=== PATIENT | male | born 1965 | race Caucasian/White ===

== ENCOUNTER 2018-08-10 10:18 | Inpatient (IN) ==
[2018-08-10] MEDS ORDERED: Acetaminophen 325 MG TABLET PO PRN (10:33)
[2018-08-10] MEDS ORDERED: Ipratropium/Albuterol Neb 3 ML IH PRN (10:33)
[2018-08-10] MEDS ORDERED: Ondansetron 4 MG/2 ML VIAL IVP PRN (10:33)
[2018-08-10] MEDS ORDERED: Menthol 9.1 MG LOZENGE PO PRN (10:39)
[2018-08-10] MEDS ORDERED: *HR* FentaNYL PATCH 50 MCG PATCH TD SCH (10:45)
[2018-08-10] MEDS: OXYCODONE Oral CONC 10 MG/0.5 ML ORAL.SYG SL PRN ×2 (13:08→17:13)
--- NOTE | 2018-08-10 16:06 | Event Note ---
Date of Encounter: 08/10/18 Time of Encounter: 16:00 Patient having new complaint of insomnia. Add Remeron.
[2018-08-10] MEDS: ALPRAZolam 0.5 MG TABLET PO PRN (20:51)
[2018-08-10] MEDS: Gabapentin 300 MG CAPSULE PO SCH (20:51)
[2018-08-10] MEDS ORDERED: Mirtazapine 15 MG TABLET PO SCH (21:00)
[2018-08-11] MEDS: OXYCODONE Oral CONC 10 MG/0.5 ML ORAL.SYG SL PRN ×3 (08:34→17:42)
--- NOTE | 2018-08-11 15:12 | Pallative History & Physical ---
Date of Encounter: 08/11/18 Time of Encounter: 12:00 Assessment and Plan (1) UTI (urinary tract infection) Current visit: No Status: Acute course of antibiotics completed Qualifiers: Urinary tract infection type: acute cystitis Hematuria presence: without hematuria Qualified Code(s): N30.00 - Acute cystitis without hematuria (2) Intractable pain Current visit: No Status: Acute today pt comfortable, received a dose of oxycodone 15 minutes ago. Fentanyl patch was placed yesterday and pt feels that his need for breakthrough medication have decreased. he received 4 doses in 24hrs (3) Anxiety Current visit: No Status: Acute Patient restarted on his Xanax dose of 0.5 mg TID, it will likely help wit sleep as well. will discontinue Remeron to avoid multi-pharmacy. (4) Pancreatic cancer Current visit: No Status: Chronic comfort measures only Qualifiers: Pancreatic malignancy location: unspecified Qualified Code(s): C25.9 - Malignant neoplasm of pancreas, unspecified (5) Goals of care, counseling/discussion Current visit: No Status: Acute pt still needs [facility] for pain management and medication adjustment. If he remains stable, plan is to return home tomorrow with [place] hospice. Discussed with pt, Family aware and agreeable. GEREMIAS Robles to work on logistics. Internal Medicine - H&P: HPI Admitted From: Intrahospital Transfer Plans for Post Hospital Care: Hospice - Home History of present illness: Mr. Romero is a 53 year old male who presents to the ER last night with complaints of intractable pain from his pancreatic cancer. Pt was diagnosed with pancreatic ca in January 2018, s/p chemotherapy and intervention, including biliary stent. Unfortunately, his pain had become unbearable and he has had very little relief over the last few weeks. As per admitting physician's note, pt came to the ER requesting pain control and Hospice care. Workup in ER revealed patient to have leukocytosis and findings consistent with UTI. He was given IV antibiotics and IV fluids. Palliative care met with pt and family and decision was made for comfort measures only and discharge to home with hospice. However, pt needed a closer follow up for pain management and was admitted to [facility]. Today pt is sleepy, but easily arousable. He was feeling cold, but otherwise comfortable. states the Fentanyl patch is working well. He used 4 PRN doses of oxycodone in 24hrs. Past Med Surg Social Fam HX - Past Medical History Medical history: cancer, hypertension Additional medical history: pancreatic Psychiatric history: anxiety, depression - Past Surgical History Surgical History: cholecystectomy, herniorrhaphy - Social History Smoking Status: Current every day smoker Smokeless Tobacco Status: No Alcohol use: none Drug use: prescription drug abuse - Family History Mother Adopted: No Family Member Ethnicity: Non- Living Status: Still Living Hx Family Cardiac Disorders: Yes Hx Family Respiratory Disorders: No Hx Family Cancer: No Hx Family GI Disorders: No Hx Family Endocrine Disorder: Yes Internal Medicine - H&P: Meds Albuterol Sulfate [Ventolin Hfa] 2 puff IH Q4H PRN 01/21/18 [History] Lidocaine/Prilocaine [Emla] 1 appl TP DAILY #30 gm 03/05/18 [Rx] Gabapentin [Neurontin] 600 mg PO BID #60 tablet 04/28/18 [Rx] Venlafaxine XR (24 HR) [Effexor Xr] 150 mg PO DAILY #30 cap.er.24h 06/02/18 [Rx] ALPRAZolam [Xanax 0.5 MG Tablet] 0.5 mg PO BID PRN 30 Days #60 tablet 06/07/18 [Rx] Oxycodone HCl 15 mg PO Q4H PRN 14 Days #84 tablet 07/28/18 [Rx] Pantoprazole Sodium [Protonix] 40 mg PO BID 08/09/18 [History] Allergy/AdvReac Type Severity Reaction Status Date / Time cephalexin [From Keflex] Allergy Rash Verified 08/09/18 17:51 Iodinated Contrast- Oral and Allergy Rash Verified 08/09/18 17:51 IV Dye lorazepam [From Ativan] Allergy Swelling Verified 08/09/18 17:51 of Lip/Tongue/Throat morphine Allergy Rash Verified 08/09/18 17:51 - Constitutional Constitutional ROS PAL: decreased appetite, fatigue - EENT Eyes: no change in vision Ears, nose, mouth, throat: no neck mass - Cardiovascular Cardiovascular ROS: no chest pain, no chest pain at rest - Respiratory Respiratory: no cough, no dyspnea - Gastrointestinal Gastrointestinal: abdominal pain, bloating, constipation, no coffee ground emesis - Genitourinary Genitourinary ROS male: no dysuria - Musculoskeletal Musculoskeletal ROS IM: muscle weakness, no arthralgias - Integumentary ROS Integumentary: dry skin, no bleeding lesions - Neurological Neurological ROS: no dizziness, no focal weakness - Psychiatric Psychiatric general PM: anxiety, depression Palliative Care-Exam - Constitutional Vitals: Temp Pulse Resp BP Pulse Ox 97.9 F 87 20 81/51 99 08/11/18 07:54 08/11/18 07:54 08/11/18 07:54 08/11/18 07:54 08/11/18 07:54 General appearance: Present: average body habitus, cooperative, no acute distress - Head Head Exam: Present: atraumatic - Eye Eye exam: Present: PERRL, scleral icterus - ENT ENT exam: Present: mucous membranes dry - Neck Neck exam: Present: full ROM - Respiratory Respiratory exam: Present: CTAB. Absent: accessory muscle use - Cardiovascular Cardiovascular exam: Present: RRR, +S1, +S2, systolic murmur - GI/Abdominal Exam GI/Abdominal exam: Present: mass, normal bowel sounds, soft, tenderness. Absent: rebound - Extremities Exam Extremities exam: Present: full ROM, normal inspection - Neurological Exam Neurological exam: Present: alert, oriented X3, no focal deficits - Skin Skin exam: Present: dry, intact, warm Palliative Quality Palliative Quality: Screen for Code Status: Yes, Screen for Goals of Care: Yes, Screen for Pain: Yes, If Pain Regimen Started, Initiate Bowel Regimen: Yes, Screen for Nausea/Vomitting: Yes Code Status: 08/10/18 10:33 Resuscitation Status: Active [RES] Routine Comment: Resuscitation Status: DNR-Comfort Care
[2018-08-11] MEDS: Gabapentin 300 MG CAPSULE PO SCH (21:05)
[2018-08-12] MEDS: OXYCODONE Oral CONC 10 MG/0.5 ML ORAL.SYG SL PRN ×2 (10:17→13:48)
--- NOTE | 2018-08-12 10:28 | Palliative Progress Note ---
Date of Encounter: 08/12/18 Time of Encounter: 09:00 - Assessment and plan (1) Metastasis from pancreatic cancer Current Visit: Yes Status: Acute Assessment and plan: Patient with metastatic pancreatic cancer. Patient and family now desire hospice care. Patient to transition home later today with [facility] care. Patient verbalized understanding of disease and prognosis. DNR State form completed yesterday per Dr. Bowman. (2) Intractable pain Current Visit: No Status: Acute Assessment and plan: Patient with metastatic pancreatic cancer. Patient admitted for intractable pain and fentanyl patch increased to 50 mcg. Discussed patient home transition and agree to continue Fentanyl patch at 50mcg and will use po Oxycodone 15 mg tabs for BTP at home. Patient also to continue 600 mg dose of gabapentin. Patient verbalized understanding. Patient currently tolerating pain plan. Completed OARRS report and discussed with Pharmacist Andrade. Report acceptable and patient with home doses of Gabapentin as per previous refill. Prescriptions written for home meds and pain medications in coordination with OARRS report. (3) Goals of care, counseling/discussion Current Visit: No Status: Acute Assessment and plan: Patient to transition home today with Hospice care (4) Anxiety Current Visit: No Status: Acute Assessment and plan: PRN Xanax - Time Spent With Patient Total time spent is greater than 50% in coordination of care (as documented) at patient's floor/unit and/or counseling patient: 25 - 35 minutes - Subjective Interval history: Patient in bed. Alert, denies complaints. Tolerating breakfast tray without nausea or vomiting. Discussed DC plan home later today. - Constitutional Vitals: stable General appearance: Present: cooperative - Head Head exam: Present: atraumatic, normal inspection - Eye Eye exam: Present: PERRL Pupils: Present: PERRL - ENT ENT exam: Present: mucous membranes dry - Neck Neck exam: Present: full ROM - Respiratory Respiratory exam: Present: CTAB - Cardiovascular Cardiovascular exam: Present: RRR, +S1, +S2 - GI/Abdominal GI/Abdominal exam: Present: normal bowel sounds, soft, tenderness - Extremities Exam Extremities exam: Present: normal inspection - Neurological Exam Neurological exam: Present: alert, oriented X3 - Psychiatric Psychiatric exam: Present: normal affect - Skin Skin exam: Present: pallor, warm Palliative Quality Palliative Quality: Screen for Code Status: Yes, Screen for Goals of Care: Yes, Screen for Pain: Yes, If Pain Regimen Started, Initiate Bowel Regimen: Yes, Screen for Nausea/Vomitting: Yes Code Status: 08/10/18 10:33 Resuscitation Status: Active [RES] Routine Comment: Resuscitation Status: DNR-Comfort Care Consult Discharge Plan - Plan Referrals: NONE,PCP [Primary Care Provider] - Prescriptions: Ipratropium/Albuterol Neb [Duoneb] 3 ml IH Q4HR PRN 4 Days #24 vial.neb PRN Reason: Shortness Of Breath ALPRAZolam [Xanax 0.5 MG Tablet] 0.5 mg PO TID PRN 4 Days #12 tablet PRN Reason: Anxiety FentaNYL PATCH [Duragesic] 50 mcg TD Q72H 6 Days #2 patch.td72 Mirtazapine [Remeron] 15 mg PO HS 4 Days #4 tablet Oxycodone HCl 15 mg PO Q4H PRN 4 Days #24 tablet PRN Reason: Pain
--- NOTE | 2018-08-12 10:41 | Discharge Summary ---
- NOTES TO OUTPATIENT PROVIDER Notes to Outpatient Provider: Patient desires Hospice care for mestatic pancreatic cancer. Transition to comfort care Date of Encounter: 08/12/18 Time of Encounter: 09:00 - Discharge Diagnosis (1) Metastasis from pancreatic cancer Priority: Primary Status: Acute Comments: Patient with metastatic pancreatic cancer. Patient and family now desire hospice care. Patient to transition home later today with [facility] care. Patient verbalized understanding of disease and prognosis. DNR State form completed yesterday per Dr. Bowman. (2) Intractable pain Priority: Primary Status: Acute Comments: Patient with metastatic pancreatic cancer. Patient admitted for intractable pain and fentanyl patch increased to 50 mcg. Discussed patient home transition and agree to continue Fentanyl patch at 50mcg and will use po Oxycodone 15 mg tabs for BTP at home. Patient also to continue 600 mg dose of gabapentin. Patient verbalized understanding. Patient currently tolerating pain plan. Completed OARRS report and discussed with Pharmacist Andrade. Report acceptable and patient with home doses of Gabapentin as per previous refill. Prescriptions written for home meds and pain medications in coordination with OARRS report. (3) Goals of care, counseling/discussion Priority: Secondary Status: Acute Comments: Transition home with Hospice care. Patient is DNRCC - Comfort Care (4) Anxiety Priority: Secondary Status: Acute Comments: WAQAR Gonsalez - Hospital Course Hospital course: Mr. Romero is a 53 year old male who transitioned to inpatient hospice with complaints of intractable pain from his pancreatic cancer. Pt was diagnosed with pancreatic ca in January 2018, s/p chemotherapy and intervention, including biliary stent. Unfortunately, his pain had become unbearable and he has had very little relief over the last few weeks. As per admitting physician's note, pt came to the ER requesting pain control and Hospice care. Workup in ER revealed patient to have leukocytosis and findings consistent with UTI. He was given IV antibiotics and IV fluids. Palliative care met with pt and family and decision was made for comfort measures only and discharge to home with hospice. However, pt needed a closer follow up for pain management and admitted. Patient with DC home with Hospice care services per [place]. - Time Spent with Patient Total time spent providing and/or coordinating discharge services: - Discharge Medications Prescriptions: Ipratropium/Albuterol Neb [Duoneb] 3 ml IH Q4HR PRN 4 Days #24 vial.neb PRN Reason: Shortness Of Breath ALPRAZolam [Xanax 0.5 MG Tablet] 0.5 mg PO TID PRN 4 Days #12 tablet PRN Reason: Anxiety FentaNYL PATCH [Duragesic] 50 mcg TD Q72H 6 Days #2 patch.td72 Mirtazapine [Remeron] 15 mg PO HS 4 Days #4 tablet RX: Oxycodone HCl 15 mg PO Q4H PRN 4 Days #24 tablet PRN Reason: Pain Home Medications: RX: Albuterol Sulfate [Ventolin Hfa] 2 puff IH Q4H PRN 01/21/18 [History] RX: Lidocaine/Prilocaine [Emla] 1 appl TP DAILY #30 gm 03/05/18 [Rx] RX: Gabapentin [Neurontin] 600 mg PO BID #60 tablet 04/28/18 [Rx] RX: Venlafaxine XR (24 HR) [Effexor Xr] 150 mg PO DAILY #30 cap.er.24h 06/02/18 [Rx] RX: Pantoprazole Sodium [Protonix] 40 mg PO BID 08/09/18 [History] ALPRAZolam [Xanax 0.5 MG Tablet] 0.5 mg PO TID PRN 4 Days #12 tablet 08/12/18 [Rx] FentaNYL PATCH [Duragesic] 50 mcg TD Q72H 6 Days #2 patch.td72 08/12/18 [Rx] Ipratropium/Albuterol Neb [Duoneb] 3 ml IH Q4HR PRN 4 Days #24 vial.neb 08/12/18 [Rx] Mirtazapine [Remeron] 15 mg PO HS 4 Days #4 tablet 08/12/18 [Rx] RX: Oxycodone HCl 15 mg PO Q4H PRN 4 Days #24 tablet 08/12/18 [Rx] Allergies/Adverse Reactions: Allergy/AdvReac Type Severity Reaction Status Date / Time cephalexin [From Keflex] Allergy Rash Verified 08/09/18 17:51 Iodinated Contrast- Oral and Allergy Rash Verified 08/09/18 17:51 IV Dye lorazepam [From Ativan] Allergy Swelling Verified 08/09/18 17:51 of Lip/Tongue/Throat morphine Allergy Rash Verified 08/09/18 17:51 Internal Medicine - DS: Prov Date of admission: 08/10/18 12:33 Primary care physician: PCP NONE Admitting clinician: Gisel Bowman Attending physician on admission: Gisel Bowman Consults: 08/10/18 10:33 Consult to Palliative Care [CONS] Routine Comment: Consulting Provider: Palliative Care Gail Reason for Consult: Pain Management-GIP Call Completed: No Attending physician on discharge: Gisel Bowman Discharging clinician: Cyn العلي Anticipated date of discharge: 08/12/18 Internal Medicine - DS: Exam - Constitutional Vitals: Vital Signs Temp Pulse Resp BP Pulse Ox 08/11/18 19:49 97.5 F L 80 21 97/58 91 Intake and Output 08/11/18 08/12/18 08/12/18 23:59 07:59 15:59 Other: # Voids 1 - Head Head exam: Present: atraumatic, normal inspection - Eye Eye exam: Present: PERRL Pupils: Present: PERRL - ENT ENT exam: Present: mucous membranes dry - Neck Neck exam: Present: full ROM - Respiratory Respiratory exam: Present: CTAB - Cardiovascular Cardiovascular exam: Present: RRR, +S1, +S2 - GI/Abdominal GI/Abdominal exam: Present: normal bowel sounds, soft - Rectal Rectal exam: Present: deferred - Extremities Exam Extremities exam: Present: normal inspection - Back Exam Back exam: Present: tenderness - Neurological Exam Neurological exam: Present: alert, oriented X3 - Psychiatric Psychiatric exam: Present: normal affect - Skin Skin exam: Present: pallor, warm - Patient Status Disposition: Hospice - Home Condition: Fair Functional capacity at discharge: independent ambulation Overall status at discharge: patient is back to baseline - Discharge Instructions Follow Up With: NONE,PCP [Primary Care Provider] - 08/12/18 (No need for follow up appointment, Partient will follow up with hospice) - Diet and Activity Activity: resume usual activities as tolerated, other (Oxygen PRN) Diet: advance to your usual diet - Stroke Reason for No Antithrombin at DC: Medical contraindication Reason for No Anticoagulant at DC: Medical contraindication Contraindication Not Initiating IV-Tpa: Medical contraindication Has Patient Been Evaluated by Rehab for Stroke: No - VTE Reasons for not Prescribing Prophylaxis: Treatment not Indicated - Low risk for VTE Deep Vein Thrombosis/Pulmonary Embolism Present on Admission: No - AMI Reason for No Statin at DC: Not Indicated - Due to Low Platelet Count
[2018-08-12 11:29] VITALS: BP 90/59
[2018-08-12] MEDS: ALPRAZolam 0.5 MG TABLET PO PRN (13:49)
== END 2018-08-12 14:00 | disposition hospice, home (50) | DRG 951 ==
LOC: 2ANU 12:33
PROVIDERS: ADMIT Internal Medicine Hospice and Palliative Medicine; ATTEND Internal Medicine Hospice and Palliative Medicine

== ENCOUNTER 2018-08-15 12:55 | Inpatient (IN) ==
[2018-08-15] MEDS ORDERED: Ondansetron 4 MG/2 ML VIAL IVP PRN (15:03)
[2018-08-15] MEDS ORDERED: Ipratropium/Albuterol Neb 3 ML IH PRN (15:03)
[2018-08-15] MEDS ORDERED: Albuterol 2.5 MG/3 ML NEBULIZER IH PRN (15:03)
[2018-08-15] MEDS ORDERED: Bisacodyl 10 MG RECTAL SUPPOSITORY RC PRN (15:03)
[2018-08-15] MEDS ORDERED: Acetaminophen 650 MG RECTAL SUPP RC PRN (15:03)
[2018-08-15] MEDS ORDERED: Atropine Sulfate 1% 40 DROP/2 ML BOTTLE SL PRN (15:03)
[2018-08-15] MEDS ORDERED: Hyoscyamine SL 0.125 MG TAB.SUBL SL PRN (15:03)
[2018-08-15] MEDS ORDERED: *HR* FentaNYL PATCH 50 MCG PATCH TD SCH (15:15)
--- NOTE | 2018-08-15 16:55 | Pallative History & Physical ---
Date of Encounter: 08/15/18 Time of Encounter: 16:30 Assessment and Plan (1) Agitation Current visit: Yes Status: Acute Patient came to [place] as GIP for agitation/anxiety. Patient refusing portillo catheter. Refused to take medication at home per hotel sales manager report. (2) Anxiety Current visit: No Status: Acute Patient calm during assessment; however, intermittently gets more agitated. (3) COPD (chronic obstructive pulmonary disease) Current visit: No Status: Acute Denies dyspnea during assessment. Oxygen via NC present. Qualifiers: COPD type: unspecified COPD Qualified Code(s): J44.9 - Chronic obstructive pulmonary disease, unspecified (4) Goals of care, counseling/discussion Current visit: No Status: Acute Per hotel sales manager. Patient needs admitted for [facility] management of agitation. Plan for placement at discharge to [facility] for hospice care. (5) Metastasis from pancreatic cancer Current visit: No Status: Acute (6) Pancreatic cancer Current visit: No Status: Chronic Denies pain during assessment. Ordered home dose of pain medications. Will titra te at needed. Qualifiers: Pancreatic malignancy location: unspecified Qualified Code(s): C25.9 - Malignant neoplasm of pancreas, unspecified Internal Medicine - H&P: HPI Chief complaint: Agitation Admitted From: Home Plans for Post Hospital Care: Hospice - Medical Facility History of present illness: Mr. Romero is a 53 year old male arrived to [place] as GIP admission for agitation r/t confusion. Admitted to [facility] for Pancreatic cancer. Patient had been diagnosed with pancreatic ca in January 2018, s/p chemotherapy and intervention, including biliary stent. Patient had been residing at home with family care; however, due to increased agitation, confusion, and pulling out portillo cather, received notification from Hospice nurse Manuel for GIP admission. SPoke with Annie in bed management and Tina in nursing services and patient given a bed on 2A22. Patient lying in bed, alert to person only upon arrival for assessment. Patient denies pain, anxiety, dyspnea, nausea and vomiting. Confusion present. Patient refused portillo catheter per RN at bedside. No family present. Past Med Surg Social Fam HX - Past Medical History Medical history: cancer, hypertension Additional medical history: pancreatic Psychiatric history: anxiety, depression - Past Surgical History Surgical History: cholecystectomy, herniorrhaphy - Social History Smoking Status: Current every day smoker Smokeless Tobacco Status: No Alcohol use: none Drug use: prescription drug abuse - Family History Mother Adopted: No Family Member Ethnicity: Non- Living Status: Still Living Hx Family Cardiac Disorders: Yes Hx Family Respiratory Disorders: No Hx Family Cancer: No Hx Family GI Disorders: No Hx Family Endocrine Disorder: Yes Internal Medicine - H&P: Meds Albuterol Sulfate [Ventolin Hfa] 2 puff IH Q4H PRN 01/21/18 [History] Lidocaine/Prilocaine [Emla] 1 appl TP DAILY #30 gm 03/05/18 [Rx] Gabapentin [Neurontin] 600 mg PO BID #60 tablet 04/28/18 [Rx] Venlafaxine XR (24 HR) [Effexor Xr] 150 mg PO DAILY #30 cap.er.24h 06/02/18 [Rx] Pantoprazole Sodium [Protonix] 40 mg PO BID 08/09/18 [History] ALPRAZolam [Xanax 0.5 MG Tablet] 0.5 mg PO TID PRN 4 Days #12 tablet 08/12/18 [Rx] FentaNYL PATCH [Duragesic] 50 mcg TD Q72H 6 Days #2 patch.td72 08/12/18 [Rx] Ipratropium/Albuterol Neb [Duoneb] 3 ml IH Q4HR PRN 4 Days #24 vial.neb 08/12/18 [Rx] Mirtazapine [Remeron] 15 mg PO HS 4 Days #4 tablet 08/12/18 [Rx] Oxycodone HCl 15 mg PO Q4H PRN 4 Days #24 tablet 08/12/18 [Rx] Allergy/AdvReac Type Severity Reaction Status Date / Time cephalexin [From Keflex] Allergy Rash Verified 08/09/18 17:51 Iodinated Contrast- Oral and Allergy Rash Verified 08/09/18 17:51 IV Dye lorazepam [From Ativan] Allergy Swelling Verified 08/09/18 17:51 of Lip/Tongue/Throat morphine Allergy Rash Verified 08/09/18 17:51 ROS unobtainable: due to mental status - Psychiatric Psychiatric general PM: anxiety, behavioral changes, irritability Palliative Care-Exam - Constitutional Vitals: Temp Pulse Resp BP Pulse Ox 97.5 F L 77 14 89/54 93 08/15/18 16:43 08/15/18 16:43 08/15/18 16:43 08/15/18 16:43 08/15/18 16:43 General appearance: Present: cooperative, disheveled, no acute distress - Eye Eye exam: Present: normal appearance, PERRL, conjuntiva pink. Absent: periorbital swelling, periorbital tenderness Pupils: Present: normal accommodation, PERRL - ENT ENT exam: Present: mucous membranes dry, normal external ear exam - Expanded ENT Exam Mouth Exam: Absent: drooling - Neck Neck exam: Present: full ROM, normal inspection - Respiratory Respiratory exam: Present: CTAB. Absent: accessory muscle use, respiratory distress - Cardiovascular Cardiovascular exam: Present: +S1, +S2 - Expanded Cardiovascular Exam Peripheral pulses: 1+: Posterior Tibialis (L), Posterior Tibialis (R), Dorsalis Pedis (L) PM, Dorsalis Pedis (R) PM, 2+: Radial (L), Radial (R) - Expanded GI/Abdominal Exam GI/Abdominal exam: Present: ascites - Rectal Rectal Exam: Present: deferred - Extremities Exam Extremities exam: Present: pedal edema. Absent: calf tenderness - Back Exam Back exam: Present: normal inspection. Absent: tenderness - Neurological Exam Neurological exam: Present: alert, altered. Absent: oriented X3, facial droop, speech deficit - Expanded Neurological Exam Patient oriented to: Present: person Coma Scale Eye Opening: To Voice Coma Scale Motor Response: Obeys Commands Coma Scale Verbal Response: Confused Coma Scale Total: 13 - Psychiatric Psychiatric exam: Present: agitated, anxious - Skin Skin exam: Present: dry. Absent: normal color (jaundiced) Palliative Quality Palliative Quality: Screen for Code Status: Yes, Screen for Goals of Care: Yes, Screen for Pain: Yes (Known to Palliative care team.), If Pain Regimen Started, Initiate Bowel Regimen: NA, Screen for Nausea/Vomitting: Yes Code Status: 08/15/18 15:03 Resuscitation Status: Active [RES] Routine Comment: Resuscitation Status: DNR-Comfort Care
[2018-08-15] MEDS: ALPRAZolam 0.5 MG TABLET PO PRN (17:31)
[2018-08-15] MEDS: OXYCODONE Oral CONC 10 MG/0.5 ML ORAL.SYG SL PRN (17:32)
[2018-08-15] MEDS: Mirtazapine 15 MG TABLET PO SCH ×2 (19:53→20:01)
[2018-08-16] MEDS: OXYCODONE Oral CONC 10 MG/0.5 ML ORAL.SYG SL PRN ×3 (02:58→15:25)
[2018-08-16] MEDS: ALPRAZolam 0.5 MG TABLET PO PRN ×2 (10:08→15:25)
--- NOTE | 2018-08-16 10:32 | Palliative Progress Note ---
<Jimbo Julio S - Last Filed: 08/16/18 10:30> Date of Encounter: 08/16/18 Time of Encounter: 10:30 - Assessment and plan (1) Confusion Current Visit: Yes Status: Acute Assessment and plan: Patient increasingly confused this morning. He is unable to tell palliative team where he is or what is going on. He is unable to participate in the conversation and only mumbles in response to questions. He has not had BM since coming here. Suspect that he may be confused secondary to increasing amounts of ammonia. Will start the pt on lactulose 10mg PO BID and titrate up to 3 BM per day. (2) Goals of care, counseling/discussion Current Visit: No Status: Acute Assessment and plan: Patient admitted for [facility]. outpatient surgery rn reported he was anxious and agitated, he refused to take medication at home. He was noncompliant with nursing staff initially, he wouldn't let them catheterize him. Plan for ECF for hospice care at discharge, family feels that they are unable to care for him at this time. (3) Anxiety Current Visit: No Status: Acute Assessment and plan: Appears anxious and restless. Continue xanex. (4) COPD (chronic obstructive pulmonary disease) Current Visit: No Status: Acute Assessment and plan: NOT in acute exacerbation. Qualifiers: COPD type: unspecified COPD Qualified Code(s): J44.9 - Chronic obstructive pulmonary disease, unspecified (5) Agitation Current Visit: Yes Status: Acute Assessment and plan: According to sign out, the pt returned to [facility] due to agitation and anxiety, refused to take rx as per home hospice nurse. He does appear moderately agitated on exam and is quite restless. Continue haldol q4hr. (6) Pancreatic cancer Current Visit: No Status: Chronic Assessment and plan: Pancreated cancer diagnosed in january 2018, s/p chemotherapy and biliary stent. Qualifiers: Pancreatic malignancy location: unspecified Qualified Code(s): C25.9 - Malignant neoplasm of pancreas, unspecified (7) Cancer related pain Current Visit: Yes Status: Acute Assessment and plan: Oxycodone 20mg SL q3hr prn, fentanyl 50mcg patch q72hr - Time Spent With Patient Total time spent is greater than 50% in coordination of care (as documented) at patient's floor/unit and/or counseling patient: less than 15 minutes - Subjective Interval history: Patient seen at bedside. He is extremely confused and isn't able to participate in conversation. He mumbles incoherently and appears moderately uncomfortable. - Constitutional General appearance: Present: disheveled, mild distress - Head Head exam: Present: atraumatic, normocephalic - Eye Eye exam: Present: scleral icterus - Respiratory Respiratory exam: Present: decreased breath sounds, prolonged expiratory phase - Cardiovascular Cardiovascular exam: Present: rubs, +S1, +S2. Absent: JVD - GI/Abdominal GI/Abdominal exam: Present: firm, guarding, tenderness Additional comments: hepatomegaly palpated, abdominal distention without peritoneal signs, voluntary guarding to deep palpation - Extremities Exam Extremities exam: Present: normal capillary refill, pedal edema. Absent: tenderness - Neurological Exam Neurological exam: Present: altered - Psychiatric Psychiatric exam: Present: agitated, anxious - Skin Skin exam: Present: dry, intact, warm Additional comments: jaundice noted throughout Palliative Quality Palliative Quality: Screen for Code Status: Yes, Screen for Goals of Care: Yes, Screen for Pain: Yes (Known to Palliative care team.), If Pain Regimen Started, Initiate Bowel Regimen: NA, Screen for Nausea/Vomitting: Yes Code Status: 08/15/18 15:03 Resuscitation Status: Active [RES] Routine Comment: Resuscitation Status: DNR-Comfort Care Palliative Scale - Palliative Performance Scale How ambulatory is this patient?: Mainly in bed What is patient's level of activity and evidence of disease?: Unable to do most activity, Extensive disease How much self-care assistance does patient require?: Total care How much oral intake does the patient have?: Mouth care only What is this patient's level of consciousness?: Full or drowsy with or without confusion Palliative Performance Score: 30 % Consult Discharge Plan - Plan Referrals: NONE,PCP [Primary Care Provider] - <Gisel Bowman - Last Filed: 08/16/18 17:33> Date of Encounter: 08/16/18 - Time Spent With Patient Total time spent is greater than 50% in coordination of care (as documented) at patient's floor/unit and/or counseling patient: - Attending Attestation I performed a history and physical examination of the patient and discussed his management with the resident. I reviewed the residents note and agree with the documented findings and plan of care, except as follow: Patient was discharged last week from [facility] to home with hospice. As per report, pt at home was anxious and agitated, and family was unable to take care of him. Pt was admitted back to for symptom management, with the goal to discharge to SNF once stable. Today pt was confused and agitated, not following commands. He received several doses of Xanax and Haldol. Confusion: DD terminal delirium vs hepatic encephalopathy. Pt is jaundice. will start on lactulose, titrate 3 BM a day. Pain management: continue fentanyl patch 50 mcg and Oxycodone 20 mg prn Anxiety and agitation: xanax and haldol prn Palliative Quality Code Status: 08/15/18 15:03 Resuscitation Status: Active [RES] Routine Comment: Resuscitation Status: DNR-Comfort Care
[2018-08-16] MEDS: Lactulose Oral Soln 20 GM/30 ML UDC PO SCH ×2 (11:25→21:16)
[2018-08-16] MEDS: Haloperidol Oral Conc 10 MG/5 ML UDC PO PRN ×2 (11:44→17:56)
[2018-08-16] MEDS: Atropine 1% Opth Drops 100 DROP/5 ML BOTTLE SL PRN ×2 (11:45→17:56)
[2018-08-16 18:53] VITALS: BP 56/37
--- NOTE | 2018-08-17 09:02 | Death Note ---
Discharge Sum: Summary - Date and Time Date of admission: 08/15/18 16:00 Date of : 08/17/18 Time of : 05:22 - Summary Details: Mr. Romero is a 53 year old male arrived to [facility] as [facility] admission for agitation r/t confusion. Admitted to [facility] for Pancreatic cancer, Patient was discharged last week from [facility] to home with hospice. As per report, pt at home was increasingly more anxious and agitated, and family was unable to take care of him. Pt was admitted back to [facility], and treated for terminal delirium. He peacefully. - Additional Data Confirmation of as documented by pronouncing clinician: no pulse, no respirations, no heart sounds, pupils fixed and dilated Family: at bedside Attending/PCP notified?: Yes Attending physician: Gisel Bowman MD Was code activated?: No Autopsy requested?: No license registration examiner notified?: No Organ bank notified?: Yes Advance directives: Yes Hospice patient?: Yes Discharge Sum: Diag - PCOD Probable Cause of : Respiratory arrest Discharge Sum: Prov - Provider Primary care physician: PCP NONE Admitting clinician: Gisel Bowman Attending physician on admission: Gisel Bowman Consults: 08/15/18 15:03 Consult to Palliative Care [CONS] Routine Comment: Consulting Provider: Palliative [facility] [place] Reason for Consult: [facility]-Agitation Call Completed: No
== END 2018-08-17 05:22 | disposition expired | DRG 951 ==
LOC: 2ANU 16:00
PROVIDERS: ADMIT Internal Medicine Hospice and Palliative Medicine; ATTEND Internal Medicine Hospice and Palliative Medicine